=== PATIENT | male | born 1960 | race African-American/Black ===

== ENCOUNTER 2022-04-10 13:58 | Day surgery (SDC) | payer OTHER ==
[~2022-04-10] VITALS: Ht 165.1 cm; Wt 68.2 kg
[2022-04-10] MEDS ORDERED: FOLIC ACID0.4 MG PO (14:40)
[2022-04-10] MEDS ORDERED: IRON 27 MG PO (14:41)
[2022-04-10 14:44] VITALS: BP 141/93; PULSE 65; TEMP 96.9
[2022-04-10 17:09] VITALS: BP 143/98; PULSE 61; TEMP 97.8
[2022-04-10 17:15] VITALS: BP 144/102; PULSE 63
--- NOTE | 2022-04-10 17:45 | NUR ---
1709 Pt returns from endo procedure via cart and RN assist to [facility]. Pt ambulates from cart to recliner with RN assist. Monitors on and alarms set. Call light within reach. Report received from RN. Pt alert and oriented. Pt requests Sprite and jello. Pt denies any pain or nausea. Family present in room. 1715 Pt taking food and drink well. No complications noted. 1740 Discharge instructions given to pt and pt's . All questions answered to their satisfaction. Handed to pt are a thank you card and discharge information. 1745 Pt transferred out of the hospital via wheelchair and this RN assist, to private vehicle driven by pt's family.
== END 2022-04-10 17:45 | disposition home or self-care (01) ==
LOC: SDCO 13:58
DX: D50.9 Iron deficiency anemia, unspecified (principal); K29.30 Chronic superficial gastritis without bleeding; K44.9 Diaphragmatic hernia without obstruction or gangrene
CPT/HCPCS: J2704; J3010; J7120